=== PATIENT | female | born 1965 | race Caucasian/White ===

== ENCOUNTER 2024-02-25 09:22 | Emergency (ER) | payer OTHER, SELFPAY ==
[2024-02-25 09:25] VITALS: BP 144/96; PULSE 89; RESP 20; TEMP 36.6; O2SAT 97; BMI 26.7
--- NOTE | 2024-02-25 09:41 | ED.GENADULT ---
HPI - General Adult General Chief complaint: General Medical Stated complaint: Hemorrhoid Time Seen by Provider: 02/25/24 09:36 Source: patient Mode of arrival: ambulatory Limitations: no limitations History of Present Illness ED Provider: REMY DUPONT narrative: 58 yo female no sig PMH had diarrhea a week ago that is improved but for the past week worsening rectal pain and now hurts to sit. She noted blood on toilet paper x 1. She thinks she has a hemorrhoid but hasn't had one like this before. She denies abdominal pain n/v/d fevers at this time. complaint: rectal pain Onset (ago): week(s) (1) Location: buttocks Radiation: non-radiation Severity: moderate Quality: aching Pain Consistency: constant Relieving factors: rest Exacerbating factors: movement Associated symptoms: denies other symptoms Treatments prior to arrival: none Related Data Previous Rx's ?Medication ?Instructions ?Recorded hydrocortisone 1 %-pramoxine 1 % [address] QID PRN hemorrhoids #10 02/25/24 rectal foam (Proctofoam HC) grams Allergies Allergy/AdvReac Type Severity Reaction Status Date / Time amoxicillin Allergy Rash Verified 02/25/24 09:27 Review of Systems Review of Systems: Constitutional : No Fever, No Chills, No Fatigue ENT/Mouth : No sore throat, No Rhinorrhea Cardiovascular : No Chest Pain, No SOB, No Dyspnea on Exertion Respiratory : No Cough, No Sputum Gastrointestinal : No Nausea, No Vomiting, No Diarrhea, No abdominal Pain, pos rectal pain Genitourinary : No Dysuria, No Urinary Frequency, No Hematuria, Musculoskeletal : No joint pain, No Myalgias, No Joint Swelling Skin : No Skin Lesions, No rash Neuro : No Weakness, No Numbness, No Dizziness, no Headache Psych : No Anxiety/Panic, No Depression All other systems reviewed and are negative [facility] Past Medical History Attestation statement: The following information was validated with the patient. Source: old records reviewed Medical History Anxiety Social History Social History (Updated 02/25/24 @ 09:58 by Bernie Anna DO) Patient Tobacco Use Status: Never used Tobacco Advance Directives: No Advance Directives Information Provided: Yes Physical Exam ED Vital Signs: Vital Signs - 24 hr 02/25/24 09:25 Temperature 98 F Pulse Rate 89 Respiratory Rate 20 Blood Pressure 144/96 H Pulse Oximetry 97 Oxygen Delivery Method Room Air BMI result Body Mass Index 26.7 Appearance: Alert. Oriented X3. No acute distress. Eyes: Pupils equal, round and reactive to light. ENT: Pharynx normal. Neck: Normal inspection. Neck supple. CVS: Normal heart rate and rhythm. Pulses normal. Respiratory: No respiratory distress. Breath sounds normal. Abdomen: Soft and nontender. Rectal: no surrounding mucosa inflammation or ttp, has one thrombosed ext hemorrhoid no bleeding Skin: Skin warm and dry. Normal skin color. Normal skin turgor. Extremities: No lower extremity edema. No calf ttp Neuro: Oriented X 3. No motor deficit. No sensory deficit. Medications Administered Discontinued Medications Generic Name Dose Route Start Last Admin Trade Name Williamq PRN Reason Stop Dose Admin Lidocaine HCl 5 ml 02/25/24 09:50 02/25/24 09:54 Lidocaine Hcl 1 % Mpf 5 Ml Vial SUBCUT 02/25/24 09:51 5 ml ONCE ONE Administration Lidocaine HCl 1 appl 02/25/24 09:50 02/25/24 09:54 Lidocaine 4 % Cream Kit TOPICAL 02/25/24 09:51 1 appl ONCE ONE Administration Protocol Lorazepam 1 mg 02/25/24 09:50 02/25/24 09:54 Lorazepam 1 Mg Tablet PO 02/25/24 09:51 1 mg ONCE ONE Administration Procedures Abscess I/D Site: other (thrombosed hemorrhoid) Sedation/analgesia: other (PO ativan) Local Anesthetic: other anesthetic (LMX preapplication) Amount of anesthesia used (mL): 2 Technique: incised with blade (11 - j incision) Amount of fluid expressed (mL): 2 Sent for culture/gram staining?: No Irrigation: No Packing used?: none Complications: other (removed clots and blood with good effect bleeding well controlled this was not abscess but thrombosed hemorrhoid procedure) Medical Decision Making Medical Decision Making MDM Narrative: 58 yo female with hx of anxiety here with c/o rectal pain on exam she has thrombosed hemorrhoid that is tender no signs of bleeding or infection will offer PO ativan and then will leslie hemorrhoid and send home with stools softeners and precautions. Patient agreeable no exam signs of proctitis no abdominal pain to suggest colitis. Differential Diagnosis Differential Diagnoses: The differential diagnosis associated with the presentation includes thrombosed hemorrhoid no abdominal ttp to suggest colitis no signs of rectal inflammation or abscess Admission/Observation Consideration of admission/observation: Escalation of care including admission/observation considered labs reassuring stable for DC Lab Data MDM Lab Attestation statement: I reviewed the patient's lab results. 02/25/24 09:45 02/25/24 09:49 Labs: Lab Results 02/25/24 Range/Units 09:45 WBC 6.7 (4.8-10.8) X10*3/uL RBC 4.62 (4.20-5.50) X10*6/uL Hgb 13.1 (12.0-16.0) g/dl Hct 39.1 (37.0-47.0) % MCV 84.6 (80.0-98.0) fL MCH 28.4 (27.0-33.0) pg MCHC 33.5 (31.0-35.0) g/dl RDW 13.1 (11.0-16.0) % Plt Count 210 (160-400) X10*3/uL MPV 9.4 (9.4-12.3) fL Immature Gran % (Auto) 0.1 (0.0-0.4) % Neut % (Auto) 60.2 (45-73) % Lymph % (Auto) 28.4 (20-40) % [place] % (Auto) 6.8 (2-11) % Eos % (Auto) 3.9 (0-4) % Baso % (Auto) 0.6 (0-2) % Lymph # (Auto) 1.9 (1.2-4.9) X10*3/uL [place] # (Auto) 0.5 (0.1-1.2) X10*3/uL Eos # (Auto) 0.3 (0.0-0.4) X10*3/uL Baso # (Auto) 0.0 (0.0-0.2) X10*3/uL Abs Immat Gran (auto) 0.01 (0.00-0.03) X10*3/uL Absolute Neuts (auto) 4.0 (2.0-8.3) x10*3/uL Absolute Nucleated RBC 0.000 (0.0-0.012) X10*3/uL Nucleated RBC % (auto) 0.0 (0.0-0.2) /100WBC Prescription Management I considered prescription management with: Other Discharge Plan Discharge Clinical Impression: External hemorrhoid, thrombosed Patient Disposition: Home, Self-Care Instructions: Hemorrhoids (ED), Sitz Bath (DC) Additional Instructions: you will drain and bleed but not more than a period and not longer than 5 days using pad. use stools softeners as prescribed. return for fevers, worsening pain or bleeding. do not strain to have bowel movement follow up with your doctor sitz bath twice a day for 3 days start proctofoam on monday over the counter medications you need to start and buy (not covered by your insurance) sennokot 1 tablet at night for the next 10 days colace 100mg twice a day for the next two weeks Prescriptions: New Proctofoam HC 1-1 % foam [address] QID PRN (Reason: hemorrhoids) Qty: 10 0RF Print Language: Croatian
[2024-02-25 09:54] LABS: MANUAL DIFF FLAG NO
[2024-02-25] MEDS: LORazepam 1 MG TABLET PO (09:54)
[2024-02-25] MEDS: Lidocaine 4 % Cream KIT 1 APPL TOPICAL (09:54)
[2024-02-25] MEDS: Lidocaine HCl 1 % MPF 5 ML VIAL SUBCUT (09:54)
[2024-02-25 09:55] LABS: Basophils Percent Auto 0.6 % (0-2); Eosinophils Absolute Auto 0.3 X10*3/uL (0.0-0.4); Eosinophils Percent Auto 3.9 % (0-4); Hematocrit 39.1 % (37.0-47.0); Hemoglobin 13.1 g/dl (12.0-16.0); Imm Gran Abs Auto 0.01 X10*3/uL (0.00-0.03); Imm Gran Pct Auto 0.1 % (0.0-0.4); Lymphocytes Absolute Auto 1.9 X10*3/uL (1.2-4.9); Lymphocytes Percent Auto 28.4 % (20-40); Mean Corpuscular HGB Conc 33.5 g/dl (31.0-35.0); Mean Corpuscular Hemoglobin 28.4 pg (27.0-33.0); Mean Corpuscular Volume 84.6 fL (80.0-98.0); Mean Platelet Volume 9.4 fL (9.4-12.3); Monocytes Absolute Auto 0.5 X10*3/uL (0.1-1.2); Monocytes Percent Auto 6.8 % (2-11); Neutrophils Percent Auto 60.2 % (45-73); Platelet Count 210 X10*3/uL (160-400); Red Blood Count 4.62 X10*6/uL (4.20-5.50); Red Cell Distribution Width 13.1 % (11.0-16.0); White Blood Count 6.7 X10*3/uL (4.8-10.8)
--- NOTE | 2024-02-25 09:55 | PC.NURSE ---
pt medicated per order
--- NOTE | 2024-02-25 09:55 | PC.NURSE ---
labs drawn, pt medicated by provider
[2024-02-25 10:49] LABS: Alanine Aminotransferase 5 U/L (0-31); Albumin Level 4.3 g/dL (3.5-5.0); Alkaline Phosphatase 79 U/L (39-117); Anion Gap 11 (12-20); Aspartate Amino Transferase 14 U/L (5-31); Bilirubin Total 0.5 mg/dL (0.0-1.0); Blood Urea Nitrogen 11 mg/dL (9-16); Calcium 9.3 mg/dL (8.4-10.2); Carbon Dioxide 30 mmol/L (22-29); Chloride 104 mmol/L (96-108); Creatinine Clr Calc Pharmacy 60.9; Estimated Glomerular Filt Rate > 60; Glucose Random 84 mg/dL (60-115); Potassium 4.1 mmol/L (3.3-5.1); Sodium 141 mmol/L (135-145)
--- NOTE | 2024-02-25 11:29 | PC.NURSE ---
with assistance of tech, provider lanced area, pt tolerated procedure well, pt to discharge home with prescriptions
[2024-02-25 11:31] VITALS: BP 126/91; PULSE 76; RESP 20; TEMP 36.7; O2SAT 97
== END 2024-02-25 11:31 | disposition home or self-care (01) ==
PROVIDERS: Emergency Provider Emergency Medicine; PCP Internal Medicine
DX: K64.5 Perianal venous thrombosis (principal); Z79.899 Other long term (current) drug therapy
CPT/HCPCS: 36415; 46083; 80053; 85025; 99283; 99284

== ENCOUNTER 2024-07-26 06:22 | Emergency (ER) | payer OTHER, SELFPAY ==
--- NOTE | 2024-07-26 | ECG_ITS ---
Test Reason : CHEST PAIN Blood Pressure : / mmHG Vent. Rate : 071 BPM Atrial Rate : 071 BPM P-R Int : 152 ms QRS Dur : 080 ms QT Int : 384 ms P-R-T Axes : 022 005 -06 degrees QTc Int : 417 ms Normal sinus rhythm Minimal voltage criteria for LVH, may be normal variant ( R in aVL ) Borderline ECG No previous ECGs available Referred By: Generic ED Physician Electronically Signed By:MARILEE JORDAN MD
--- NOTE | ~2024-07-26 | XR_ITS ---
EXAMINATION: XR CHEST CLINICAL INFORMATION: CP COMPARISON: None available. TECHNIQUE: PA and lateral views of the chest were obtained. FINDINGS: The lungs are well expanded. No focal consolidation, effusion, edema, or pneumothorax. The cardiomediastinal silhouette is within normal limits for technique. No acute osseous abnormality. XR/XR chest 2V IMPRESSION: No acute pulmonary disease. Electronically signed by: Danna Plummer DO 07/26/2024 09:17 AM [facility]
--- OUTSIDE RECORDS SUMMARY | 2024-07-26 06:23 | XMS_ITS | Data Portability ---
Author Organization [facility], [address] Address [address] [place] [address] Assessment No assessment recorded. Plan of Treatment Reminders Order Date Submit Date Provider Last Modified By Organization Details Last Modified Time Details Appointments None recorded. Lab None recorded. Referral None recorded. Procedures None recorded. Surgeries None recorded. Imaging XR, finger(s), 2 or more view 2022 023 [email or web address], [address] [place], [address], 3 09:17:36 Medication Orders clindamycin HCl 300 mg capsule 2022 023 [id number], [address] [place], [address], 3 09:14:33 Patient TargetsNo targets recorded. Patient Instructions Encounter Date Encounter Id Patient Instructions Last Modified By Organization Details Last Modified Time 08/14/2022 [id number] learning about rice (rest, ice, compression, and elevation) [email or web address] Not available 08/14/2022 08:50:45 Reason for Referral None Reported. Results Created Date Observation Date Name Description Value Unit Range Abnormal Flag Note LastModifiedBy Organization Detail LastModifiedTime 08/14/19 23 08/14/2022 XR, finge r(s), 2 or more view No observ ation record ed. [email or web address] [facility] [address] [place], [address], 08/14/2022 15:19:51 08/14/19 23 XR, finge r(s), 2 or more view No observ ation record ed. [email or web address] [facility] [address] [place], [address], 08/17/2022 19:44:07 Result Notes None recorded. Problems Name Problem SNOMED Code Status Onset Date Resolution Date Notes Provider Name and Address Organization Details Recorded Time Chronic depression 961172262 Active 023 IRIS COUVERTIE R null, [place] - [facility] 3 08:21:52 Migraine 77659733 Active 023 IRIS COUVERTIE R null, PA - [facility] 3 08:21:59 Problem Notes None recorded. Procedures Surgical History None recorded. Imaging Results Imaging Date Name Status LastModified by Organiz ation Details LastModified Time 08/14/2022 XR, finger(s), 2 or more view completed [email or web address] [facility] [address] [place], [address], 08/14/2022 15:19:51 08/14/2022 XR, finger(s), 2 or more view completed [email or web address] [facility] [address] [place], [address], 08/17/2022 19:44:07 Procedure Notes None recorded. Medical Equipment None Reported. Allergies Allergen ID Allergen Name Allergen Category Reaction Reaction Severity Criticality Documentation Date Start Date Code Code System Note Provider Name and Address Organization Details Recorded Time 38802 amoxicill in medicatio n rash moderate high 08/14/2022 723 RxNorm IRIS COUVERTIE R null, PA - [facility] 08:20:51 Medications Name Sig Start Date Stop Date Status Note LastModified by Organization Details LastModified Time clindamycin HCl 300 mg capsule Take 1 capsule every 6 hours by oral route for 10 days. 2022 active Not Available Not Available Not Avai lable ibuprofen 800 mg tablet TAKE 1 TABLET BY MOUTH THREE TIMES A DAY WITH FOOD active Not Available Not Available No t Available clindamycin HCl 150 mg capsule TAKE 1 CAPSULE BY MOUTH EVERY 6 HOURS active Not Available Not Available No t Available sumatriptan 50 mg tablet TAKE 1 TABLET AT ONSET OF MIGRAINE. MAY REPEAT DOSE ONCE AFTER 2 HOURS, IF NEEDED. active Not Available Not Available No t Available acetaminophen 500 mg tablet TAKE 1 TABLET (500MG) BY ORAL ROUTE EVERY 6 HOURS NEEDED active Not Available Not Available No t Available polymyxin B sulfate 10,000 unit-trimethop rim 1 mg/mL eye drops INSTILL 1 DROP INTO THE AFFECTED EYE EVERY 4 HOURS WHILE AWAKE UNTIL SYMPTOMS IMPROVE (7DAYS) active Not Available Not Available No t Available oxycodone-acet aminophen 2.5 mg-325 mg tablet TAKE 1 TABLET BY MOUTH ONCE DAILY NEEDED- INS COVERS MAX 7 DAYS FOR FIRST NARC active Not Available Not Available No t Available naproxen 500 mg tablet TAKE 1 TABLET BY MOUTH TWICE A DAY NEEDED FOR PAIN WITH FOOD active Not Available Not Available No t Available diazepam 5 mg tablet TAKE 1 TABLET BY MOUTH EVERY 8 HOURS NEEDED FOR MUSCLE SPASM. active Not Available Not Available No t Available bupropion HCl SR 200 mg tablet,12 hr sustained-rele ase TAKE 1 TABLET BY MOUTH TWICE A DAY active Not Available Not Available No t Available cyclobenzaprin e 5 mg tablet active Not Available Not Availabl e Not Available atomoxetine active Not Available Not A vailable Not Available bupropion HBr active Not Available Not Available Not Available Vitals Date Recorded Body height Body mass index (BMI) Body weight Body temperature Respiratory rate Heart rate Oxygen saturation Oxygen saturation in Arterial blood by Pulse oximetry Systolic blood pressure Diastolic blood pressure Provider Name and Address Organization Details Last Updated DateTime 3 157.48 cm 27.4 kg/m2 20946.8 6 g 98 [degF] 18 /min 77 /min 97 % 97 % 136 mm[Hg] 89 mm[Hg] KATHY BYNUM - [facility] 3 08:23:37 Date Recorded Body height Body mass index (BMI) Body weight Body temperature Respiratory rate Heart rate Oxygen saturation Oxygen saturation in Arterial blood by Pulse oximetry Systolic blood pressure Diastolic blood pressure Provider Name and Address Organization Details Last Updated DateTime 3 157.48 cm 27.4 kg/m2 22106.8 6 g 98 [degF] 18 /min 74 /min 97 % 97 % 147 mm[Hg] 90 mm[Hg] KATHY Schmitz [facility] 08:34:23 Social History Question Answer Notes LastModified by Organizat ion Details LastModified Time Tobacco Smoking Status Former Smoker KATHY VALERIO [facility] 08/14/2022 08:22:14 What Is Your Level Of Alcohol Consumption? Occasional Information not available 08/14/2022 What Is Your Water Source? City Information not available 08/14/2022 What Is Your Heat Source? Other Information not available 08/14/2022 Have You Had Direct Contact, Or Contact During Intimacy, With Monkeypox Rash, Scabs, Or Body Fluids From A Person With Monkeypox? No Information not available 08/14/2022 Do You Use Any Illicit Or Recreational Drugs? No Information not available 08/14/2022 Have You Recently Traveled Abroad? No Information not available 08/14/2022 Do You Or Have You Ever Used Any Other Forms Of Tobacco Or Nicotine? No Information not available 08/14/2022 Sex: Unknown Functional Status None recorded. Mental Status None recorded. Family History Relationship Description Onset Age of this Age Resolved Age Notes LastModified by Organization Details LastModified Time Father No current problems or disability Not available 08:22:02 Mother No current problems or disability Not available 08:22:02 Medical History No medical history recorded. Gynecological HistoryNo gynecological history recorded. Obstetrics History GPAL:G 0 P 0 0 0 0 Past Encounters Encounter ID Performer Location Encounter Start Date Encounter Closed Date Diagnosis/Indication Diagnosis SNOMED-CT Code Diagnosis ICD10 Code [id number] [address] [address] 03/06/2022 08:07:06 03/06/2022 08:25:[id number] [address] 06/12/2022 08:51:14 06/12/2022 10:32:37 [id number] [facility] [address] [place] [address] 08/14/2022 08:06:59 08/14/2022 09:17:36 Sprain of ligament of finger of left hand [id number] 2943706 S63.613A Fracture o f proximal phalanx of finger 308529249 S62.611A [id number] Aric Costa DO [address] [place] [address] 08/26/2022 08:06:24 08/26/2022 09:22:30 Dental abscess [id number] K04.7 Health Concerns Section Related Observation LastModified by Organization Detai ls LastModified Time None Recorded Concern Status LastModified by Organization Details LastModified Time None Recorded Advance Directives Directive None Recorded Payers Encounter Date Sequence Insurance Name Policy Number Policy Montoya Covered Member ID Montoya Member ID Guarantor Name 03/06/2022 1 [employer] [id number] Peg Story [id number] Peg Story 06/12/2022 1 [employer] [id number] Peg Story [id number] Peg Story 08/14/2022 1 [employer] [id number] Peg Story [id number] Peg Story 08/26/2022 1 [employer] [id number] Peg Story [id number] Peg Story Notes Date Note Type Note Provider Name and Address Organization Details Recorded Time 08/14/2022 text/html Peg is a 56 yo F here for evaluation of LEFT middle finger injury onset 2 weeks ago. States she fell and jammed her MF. Since then has continued with pain and swelling. Here for x-ray to rule out fx. Has FAROM but with pain. No paresthesias or color changes. Has tried otc Ibuprofen with some relief to pain. MISA [address]GRATH [address] [place], [address], [place] - [facility] 08/14/2022 09:16:39 08/26/2022 text/html 56 yo femalec/o R upper tooth pain x 1 weekusing ibu w/ minimum reliefno f/c/n/vno rashno d/gregorio a dentist but cannot get in to see them x a few weeks PCN allergy Aric Costa, DO [address] [place], [address], [place] - [facility] 08/26/2022 09:18:47 OBGyn Episode No OBEpisode recorded.
[2024-07-26 06:34] VITALS: BP 167/84; PULSE 70; RESP 16; TEMP 36.5; O2SAT 100; BMI 24.9
[2024-07-26 06:39] LABS: Basophils Absolute Auto 0.1 X10*3/uL (0.0-0.2); Basophils Percent Auto 0.9 % (0-2); Eosinophils Absolute Auto 0.2 X10*3/uL (0.0-0.4); Eosinophils Percent Auto 3.9 % (0-4); Hematocrit 41.9 % (37.0-47.0); Imm Gran Abs Auto 0.01 X10*3/uL (0.00-0.03); Imm Gran Pct Auto 0.2 % (0.0-0.4); Lymphocytes Absolute Auto 1.6 X10*3/uL (1.2-4.9); Lymphocytes Percent Auto 29.8 % (20-40); MANUAL DIFF FLAG NO; Mean Corpuscular HGB Conc 33.4 g/dl (31.0-35.0); Mean Corpuscular Volume 83.8 fL (80.0-98.0); Mean Platelet Volume 9.4 fL (9.4-12.3); Monocytes Absolute Auto 0.5 X10*3/uL (0.1-1.2); Monocytes Percent Auto 8.5 % (2-11); Neutrophils Absolute Auto 3.1 x10*3/uL (2.0-8.3); Neutrophils Percent Auto 56.7 % (45-73); Platelet Count 222 X10*3/uL (160-400); Red Cell Distribution Width 13.1 % (11.0-16.0); White Blood Count 5.4 X10*3/uL (4.8-10.8)
[2024-07-26 06:58] LABS: Alanine Aminotransferase 14 U/L (0-31); Albumin Level 4.2 g/dL (3.5-5.0); Alkaline Phosphatase 81 U/L (39-117); Anion Gap 13 (12-20); Aspartate Amino Transferase 18 U/L (5-31); Bilirubin Total 0.4 mg/dL (0.0-1.0); Blood Urea Nitrogen 11 mg/dL (9-16); Calcium 9.3 mg/dL (8.4-10.2); Carbon Dioxide 28 mmol/L (22-29); Chloride 104 mmol/L (96-108); Creatinine Clr Calc Pharmacy 63.8; Estimated Glomerular Filt Rate > 60; Glucose Random 89 mg/dL (60-115); Potassium 3.9 mmol/L (3.3-5.1); Sodium 141 mmol/L (135-145); Total Protein 7.1 g/dL (6.5-8.0)
[2024-07-26 07:08] LABS: Troponin-I High Sensitivity < 2.7 ng/L (<3.5-17.0)
--- NOTE | 2024-07-26 08:18 | MHC.EDTECH ---
pt placed on residential monitor, call zacarias in reach
[2024-07-26 08:20] VITALS: BP 151/77; PULSE 67; RESP 12; TEMP 36.5; O2SAT 99
--- NOTE | 2024-07-26 08:49 | ED.CHESTPAIN ---
HPI - Chest Pain General Chief Complaint: Chest Pain Stated Complaint: chest pain Time Seen by Provider: 07/26/24 08:20 Source: patient Mode of arrival: ambulatory History of Present Illness ED Provider: Soledad DUPONT narrative: 58-year-old female presents with onset of left-sided chest discomfort started approximately 0430-0 500 this morning not associated with any sweating or vomiting, denies any relationship to deep inspiration/positional change/movement or recent coughing. Patient denies any fever, chills, nausea, vomiting Related Data Previous Rx's ?Medication ?Instructions ?Recorded hydrocortisone 1 %-pramoxine 1 % 1 appl WA QID PRN hemorrhoids #10 02/25/24 rectal foam (Proctofoam HC) grams Allergies Allergy/AdvReac Type Severity Reaction Status Date / Time amoxicillin Allergy Rash Verified 07/26/24 06:35 Review of Systems Review of Systems: pertinent positives and negatives as stated in HPI [facility] Past Medical History Source: nursing notes reviewed Medical History Anxiety Social History Social History Patient Tobacco Use Status: Never used Tobacco Smoked in Last 30 Days: No Use of substances other than those prescribed or required for medical reasons: No Advance Directives: No Advance Directives Information Provided: Yes Physical Exam Vital Signs: Vital Signs: Last Vital Signs Temp 97.8 F 07/26/24 08:54 Pulse 69 07/26/24 08:54 Resp 12 07/26/24 08:54 BP 133/77 07/26/24 08:54 Pulse Ox 99 07/26/24 08:54 O2 Del Method Room Air 07/26/24 08:54 BMI result Body Mass Index 24.9 VITAL SIGNS: Reviewed. GENERAL: Well developed, well nourished, in no acute distress. HEAD: Normocephalic/atraumatic EYES: PERRLA, EOMI EARS: Ext canals without abnormality NOSE: Nares patent bilateral OROPHARYNX: no oral lesions noted, posterior pharynx clear NECK: Supple, no adenopathy LUNGS: Normal breath sounds. No adventitious sounds or accessory muscle use. SpO2<99> CARDIOVASCULAR: Regular rate and rhythm without noted murmurs ABDOMEN: Soft, non-tender, non-distended with bowel sounds. MUSCULOSKELETAL: No tenderness, deformities, or effusions noted on gross inspection. EXTREMITIES: No cyanosis, clubbing or edema. SKIN: Inspection of the skin reveals no rashes NEUROLOGIC: Alert and oriented x 4. Strength and sensation to light touch were grossly intact x 4. Medications Administered Discontinued Medications Generic Name Dose Route Start Last Admin Trade Name Williamq PRN Reason Stop Dose Admin Acetaminophen 975 mg 07/26/24 09:08 07/26/24 09:12 Acetaminophen 325 Mg Tablet PO 07/26/24 09:09 975 mg ONCE ONE Administration Ibuprofen 400 mg 07/26/24 09:08 07/26/24 09:12 Ibuprofen 400 Mg Tablet PO 07/26/24 09:09 400 mg ONCE ONE Administration Medical Decision Making Medical Decision Making [facility] Narrative: This is a 58-year-old female with history and clinical presentation, otherwise appears well, DD DX: Pneumonia/ costochondritis/ musculoskeletal pain, lower clinical suspicion for ACS. No historical or clinical findings suggestive pericarditis. EKG: Normal sinus rhythm, HR - 71, no STEMI, WA /QRS / QTC /QTC is within normal limits. I reviewed and interpreted all investigations and there is no evidence infectious leukocytosis, anemia, or thrombocytopenia. There is no demonstrate JALIL /electrolyte or liver enzyme derangements. My interpretation of the chest x-ray is that there is no evidence of pneumothorax, pneumonia, or venous congestion. Otherwise, my interpretation is in agreement with radiology's impression. Patient is also had up-to-date mammograms with the most recent being this year and she reports that it was within normal limits. Serial high sensitivity troponins are undetectable. The plan was discussed with the patient at bedside and she understands she will be discharged home with recommended follow-up to her primary care doctor. Differential Diagnosis Differential Diagnoses: The differential diagnosis associated with the presentation includes As above Admission/Observation Consideration of admission/observation: Escalation of care including admission/observation considered will consider but otherwise refer to above Lab Data [facility] Lab Attestation statement: I reviewed the patient's lab results. as above 07/26/24 06:33 07/26/24 06:33 Labs: Lab Results 07/26/24 07/26/24 Range/Units 06:33 08:57 WBC 5.4 (4.8-10.8) X10*3/uL RBC 5.00 (4.20-5.50) X10*6/uL Hgb 14.0 (12.0-16.0) g/dl Hct 41.9 (37.0-47.0) % MCV 83.8 (80.0-98.0) fL MCH 28.0 (27.0-33.0) pg MCHC 33.4 (31.0-35.0) g/dl RDW 13.1 (11.0-16.0) % Plt Count 222 (160-400) X10*3/uL MPV 9.4 (9.4-12.3) fL Immature Gran % (Auto) 0.2 (0.0-0.4) % Neut % (Auto) 56.7 (45-73) % Lymph % (Auto) 29.8 (20-40) % [place] % (Auto) 8.5 (2-11) % Eos % (Auto) 3.9 (0-4) % Baso % (Auto) 0.9 (0-2) % Lymph # (Auto) 1.6 (1.2-4.9) X10*3/uL [place] # (Auto) 0.5 (0.1-1.2) X10*3/uL Eos # (Auto) 0.2 (0.0-0.4) X10*3/uL Baso # (Auto) 0.1 (0.0-0.2) X10*3/uL Abs Immat Gran (auto) 0.01 (0.00-0.03) X10*3/uL Absolute Neuts (auto) 3.1 (2.0-8.3) x10*3/uL Absolute Nucleated RBC 0.000 (0.0-0.012) X10*3/uL Nucleated RBC % (auto) 0.0 (0.0-0.2) /100WBC Sodium 141 (135-145) mmol/L Potassium 3.9 (3.3-5.1) mmol/L Chloride 104 (96-108) mmol/L Carbon Dioxide 28 (22-29) mmol/L Anion Gap 13 (12-20) BUN 11 (9-16) mg/dL Creatinine 0.84 (0.5-1.4) mg/dL Estim Creat Clear Calc 63.8 Estimated GFR > 60 Random Glucose 89 (60-115) mg/dL Calcium 9.3 (8.4-10.2) mg/dL Total Bilirubin 0.4 (0.0-1.0) mg/dL AST 18 (5-31) U/L ALT 14 (0-31) U/L Alkaline Phosphatase 81 (39-117) U/L Troponin I High Sens < 2.7 < 2.7 (<3.5-17.0) ng/L Total Protein 7.1 (6.5-8.0) g/dL Albumin 4.2 (3.5-5.0) g/dL Independent Interpretation I performed an independent interpretation of an: Plain X-Ray Interpretation: as above Radiology Impression Discussion of test interpretation with radiology: I have reviewed the radiologist's reading. Radiologist Impression: as above External Record Review External record reviewed: Prior outpatient labs and Prior outpatient radiology Discharge Plan Discharge Clinical Impression: Atypical chest pain, Musculoskeletal pain, Costochondritis Patient Disposition: Home, Self-Care Instructions: Chest Wall Pain (ED), Costochondritis (ED), Musculoskeletal Pain (ED) Additional Instructions: resume all home medications as prescribed. Tylenol 1000 mg, orally, every 6 hours as needed for pain control. Do not exceed 4000 mg within 24 hours. Ibuprofen 400 mg, orally with milk or food, every 6 hours as needed for pain control. Use caution as this can lead to stomach upset. Lidocaine patch, apply to area of maximal tenderness as directed on the outside packaging. Recommend follow-up with your primary care doctor within the next week and return to the emergency room for any acute worsening of your symptoms. Prescriptions: No Action Proctofoam HC 1-1 % foam 1 appl WA QID PRN (Reason: hemorrhoids) Qty: 10 0RF Referrals: Kelley Martinez MD [Primary Care Provider] - Print Language: Paraguayan
[2024-07-26 08:54] VITALS: BP 133/77; PULSE 69; RESP 12; TEMP 36.6; O2SAT 99
--- NOTE | 2024-07-26 09:00 | MHC.EDTECH ---
2nd troponin drawn and sent to lab
[2024-07-26] MEDS: Acetaminophen 325 MG TABLET 975 MG PO (09:12)
[2024-07-26] MEDS: Ibuprofen 400 MG TABLET PO (09:12)
[2024-07-26 09:25] LABS: Troponin-I High Sensitivity < 2.7 ng/L (<3.5-17.0)
[2024-07-26 09:56] VITALS: BP 133/77; PULSE 69; RESP 16; TEMP 36.6; O2SAT 99
== END 2024-07-26 09:56 | disposition home or self-care (01) ==
PROVIDERS: Emergency Provider Student in an Organized Health Care Education/Training Program; PCP Internal Medicine
DX: M94.0 Chondrocostal junction syndrome [Tietze] (principal); R07.9 Chest pain, unspecified; M79.18 Myalgia, other site
CPT/HCPCS: 36415; 71046; 80053; 84484; 85025; 93005; 99283; 99285

== ENCOUNTER → 2024-07-26 06:27 | Outpatient (BNV) | payer OTHER, SELFPAY | PROVIDERS: Emergency Provider Student in an Organized Health Care Education/Training Program; PCP Internal Medicine; Visit Provider Internal Medicine Cardiovascular Disease | DX: R07.9 Chest pain, unspecified (principal) | CPT/HCPCS: 93010 ==